=== PATIENT | female | born 1995 | race Caucasian/White ===

== ENCOUNTER 2016-02-27 18:01 | Emergency (ER) | payer BC ==
[2016-02-27] MEDS ORDERED: LORazepam 2 MG/ML INJ IVP ONE ×2 (18:34→19:51)
[2016-02-27] MEDS ORDERED: NS 1,000 ML IV ONE ×2 (18:34→19:51)
--- NOTE | 2016-02-27 18:38 | EDPHY ---
H & P Smoking Status: Never smoked Time Seen by Provider: 02/27/16 18:26 HPI/ROS: CHIEF COMPLAINT: Consumed marijuana edibles, feeling anxious HISTORY OF PRESENT ILLNESS: 20-year-old female presents to the emergency department by private vehicle feeling extremely anxious. The patient admits to using marijuana edibles approximately 1 hour prior to arrival. The patient has never consumed these in the past. She feels extremely anxious and is concerned that her heart rate is very high. She has no pain in her chest. She does feel short of breath and feels extremely anxious. She does take a medication for depression, Effexor. Denies any other substance abuse. Not consume alcohol. She denies headache. Denies trauma. REVIEW OF SYSTEMS: Constitutional: No fever, no chills. Eyes: No double or blurry vision. ENT: No sore throat. Respiratory: As above. No cough. Cardiac: No chest pain. Gastrointestinal: No abdominal pain, vomiting or diarrhea. Genitourinary: No dysuria. Musculoskeletal: No neck or back pain. Skin: No rashes. Neurological: No headache. (ZulmaIrene sim) Past Medical/Surgical History: Depression (JanyIrene) Social History: Visiting from [place] (JanyIrene) Physical Exam: General Appearance: Alert, no distress. Anxious. Initial heart rate 147. She is 98% on room air. Blood pressure 135/80. Eyes: Pupils equal and round. Extraocular motions are all intact. ENT: Mouth: Mucous membranes moist. Respiratory: No wheezing, rhonchi, or rales, lungs are clear to auscultation. Cardiovascular: Regular rate and rhythm. Tachycardic. Gastrointestinal: Abdomen is soft and nontender, no masses, no rebound or guarding, bowel sounds normal. Neurological: Alert and oriented x 3, cranial nerves II through XII grossly intact Skin: Warm and dry, no rashes. Musculoskeletal: Nontender to palpate along the cervical, thoracic or lumbar spine. Neck is supple. Extremities: Full range of motion and no peripheral edema. Psychiatric: Patient is oriented X 3, there is no agitation. (JanyIrene) Constitutional: Initial Vital Signs Heart Rate 87 02/27/16 18:24 Respiratory Rate 19 02/27/16 18:24 Blood Pressure 112/74 02/27/16 18:24 O2 Sat (%) 92 02/27/16 18:24 O2 Delivery Mode Room Air Allergies/Adverse Reactions: Sulfa (Sulfonamide Antibiotics) Allergy (Verified 02/27/16 18:10) Home Medications: Medication Instructions Recorded Zoloft 100mg (*) 02/27/16 Medical Decision Making - Diagnostics EKG Interpretation: EKG: Complete interpretation has been separately recorded in the [facility] ([facility]) archive. Summary impression: Sinus tachycardia, rate 124, nonspecific ST T wave changes noted. (Perez Cardenas) ED Course/Re-evaluation: 20-year-old female who consumed marijuana presents feeling extremely anxious and complaining of difficulty breathing. An IV was established the patient was given 1 L of IV normal saline and 1 mg of Ativan IV. Patient was given total of 2 L of IV normal saline and an additional 1 mg of Ativan IV. She was observed for over 4 hours in the emergency department. Upon discharge her heart rate was 100. She was feeling much better. She was given a take-home pack of Ativan to use as needed. She has taken Ativan in the past for anxiety. She feels comfortable being discharged home. (Irene Carmichael ) Differential Diagnosis: Including but not limited to marijuana ingestion, anxiety, arrhythmia, substance abuse (Irene Carmichael) Other Provider: PHYSICIAN DOCUMENTATION: The patient was evaluated and managed by the Physician Eeg Technologist. My co- signature indicates that I have reviewed this chart and I agree with the findings and plan of care as documented. I am the secondary supervising physician. (Perez Cardenas) - Data Points Medications Given: Discontinued Medications Sodium Chloride (Ns) 1,000 mls @ 0 mls/hr IV ONCE ONE PRN Reason: Wide Open Stop: 02/27/16 18:35 Last Admin: 02/27/16 19:03 Dose: 1,000 mls Sodium Chloride (Ns) 1,000 mls @ 0 mls/hr IV ONCE ONE PRN Reason: Wide Open Stop: 02/27/16 19:52 Last Admin: 02/27/16 19:54 Dose: 1,000 mls Lorazepam (Ativan Injection) 1 mg IVP EDNOW ONE Stop: 02/27/16 18:35 Last Admin: 02/27/16 19:03 Dose: 1 mg Lorazepam (Ativan Injection) 1 mg IVP EDNOW ONE Stop: 02/27/16 19:52 Last Admin: 02/27/16 19:55 Dose: 1 mg Lorazepam (Ativan 1 Mg Prepack#4) 1 btl TAKEHOME EDNOW ONE Stop: 02/27/16 21:28 Last Admin: 02/27/16 22:04 Dose: 1 btl Departure - Departure Disposition: Home, Routine, Self-Care Clinical Impression: Marijuana ingestion, Anxiety Condition: Good Instructions: Cannabis Abuse (ED), Anxiety (ED) Additional Instructions: Ativan as directed for symptoms of anxiety. Activity as tolerated. Return if he developed chest pain, difficulty breathing, or if you feel worse in any way. Referrals: Celi Dickerson, [Doctor of Osteopathy] - 1 day, if not improved (Primary care provider media monitor)
--- NOTE | 2016-02-27 18:47 | CPEKG ---
Heart Rate: 124 RR Interval: 484 P-R Interval: 140 QRSD Interval: 94 QT Interval: 332 QTC Interval: 477 P [place]: 58 QRS [place]: 66 T Wave [place]: 269 EKG Severity - ABNORMAL ECG - EKG Impression: SINUS TACHYCARDIA EKG Impression: REPOL ABNRM SUGGESTS ISCHEMIA, DIFFUSE LEADS EKG Impression: BORDERLINE PROLONGED QT INTERVAL Electronically Signed By: Perez Cardenas 27-Feb-2016 23:22:30
[2016-02-27] MEDS ORDERED: LORazepam 2 MG/ML INJ ONE (19:45)
[2016-02-27] MEDS ORDERED: LORAZEPAM 1 MG PREPACK#4 BTL TAKEHOME ONE (21:27)
[2016-02-27 22:20] VITALS: BP 127/73; PULSE 104; RESP 20; TEMP 98.1; O2SAT 98
== END 2016-02-27 22:21 | disposition home or self-care (01) ==
DX: F41.9 Anxiety disorder, unspecified (principal); F12.10 Cannabis abuse, uncomplicated
CPT/HCPCS: 96374